=== PATIENT | female | born 2000 | race Caucasian/White ===

== ENCOUNTER 2021-05-26 15:17 | Emergency (ER) | payer OTHER, SELFPAY ==
[2021-05-26 15:38] VITALS: BP 124/82; PULSE 75; RESP 14; TEMP 36.4; O2SAT 99; BMI 32.4
--- NOTE | 2021-05-26 21:32 | PC.NURSE ---
denies numbness or tingling in UE and LE, no loss of bowel or bladder control, hx of same but not this bad tylenol [employer] at 1430
--- NOTE | 2021-05-26 23:31 | ED_ITS ---
HPI - Back Pain/Injury General Chief Complaint: Back Pain/Injury Stated Complaint: Sharp Pain in Lower Back Time Seen by Provider: 05/26/21 23:30 Source: patient Mode of arrival: Ambulatory Limitations: no limitations History of Present Illness HPI Narrative: This is a 20-year-old female comes emergency department with complaint of low back pain. Patient has had a couple twinges urinary but today bent over and had sudden severe pain in her mid lumbar spine. That radiates bilaterally. Any sort of movement makes worse particularly bending. Patient denies any numbness, tingling or weakness, no bowel or bladder incontinence. She has increased with movement of her legs but no radiation of pain down her legs. Patient denies any other major medical issues. No daily medications. No prior surgeries. No drug allergies. She had Tylenol about 230 today she has not had anything since. She is active duty . Denies tobacco, occasional alcohol, no illicit. She is accompanied by her boyfriend. Related Data Previous Rx's Medication Instructions Recorded diazepam 5 mg tablet (Valium) 5 mg PO TID PRN #14 tab 05/26/21 Allergies Allergy/AdvReac Type Severity Reaction Status Date / Time No Known Drug Allergies Allergy Verified 05/26/21 15:37 Review of Systems Review of Systems ROS Unobtainable: All systems reviewed & are unremarkable except as noted in HPI and below Patient History Social History Smoking Status: Never smoker Smoking Status: Never smoker alcohol intake frequency: holidays/special occasions only Substance Use Type: does not use Exam Narrative Exam Narrative: GENERAL: Alert and oriented x three, female in [id number] distress. HEENT: Head normocephalic, atraumatic, EOMI, pupils reactive, face symmetric, moist mucous membranes NECK: Supple, full range of motion CARDIOVASCULAR: Regular rate and rhythm without murmurs, rubs or gallops. RESPIRATORY: Breath sounds equal bilaterally, no wheezes rales or rhonchi. ABDOMEN: Soft, nontender. Normoactive bowel sounds all 4 quadrants. No guarding or rebound, rigidity, no mass : No CVA tenderness BACK: No cervical, thoracic vertebral point tenderness. Patient does have some midline tenderness of the lower lumbar spine. No point tenderness. Has decreased but is able to move through her range of motion. Rectal exam is de ferred. Muscle strength is 5/5 in lower extremities, DTRs are 2/4 and lower extremities. Dorsalis pedis and tibialis pulses are 2+ and lower extremities. Sensation is intact in the lower extremities. Patient is able to sit up and rotate to the side of the bed without assistance. EXTREMITIES: Normal range of motion, no clubbing or edema. Neurovascularly intact NEUROLOGICAL: Cranial nerves II through XII grossly intact. Moving all extremities SKIN: Warm, dry, no petechiae, no rashes or lesions. Initial Vital Signs Initial Vital Signs: Vital Signs Temperature 97.6 F 05/26/21 15:38 Pulse Rate 75 05/26/21 15:38 Respiratory Rate 14 05/26/21 15:38 Blood Pressure 124/82 05/26/21 15:38 Pulse Oximetry 99 05/26/21 15:38 Course Orders Ordered: Discontinued Medications Diazepam (Diazepam 5 Mg Tablet) 5 mg PO NOW ONE Stop: 05/26/21 23:42 Last Admin: 05/26/21 23:50 Dose: 5 mg Documented by: SHUKRI Ketorolac Tromethamine (Ketorolac 30 Mg/Ml Vial) 30 mg IV NOW ONE Stop: 05/26/21 23:42 Last Admin: 05/26/21 23:50 Dose: 30 mg Documented by: SHUKRI Vital Signs Vital signs: Vital Signs - 8 hr 05/26/21 15:38 Temperature 97.6 F Pulse Rate 75 Respiratory Rate 14 Blood Pressure 124/82 Pulse Oximetry 99 MDM - Back Pain/Injury MDM Narrative Medical decision making narrative: This is a 20-year-old female with acute low back pain that occurred while bending over. Patient has not had persistent issues but has had some mild twinges of discomfort recently. She does not have any red flag symptoms at this time. Plan for pain medication, muscle relaxer and follow up with primary care. We did discuss red flag symptoms and she expressed understanding for reasons to return to the ED. Discharge Plan Departure Patient Disposition: Home Clinical Impression: Lumbar strain Instructions: DI for Back Strain or Sprain Activity Restrictions/Additional Instructions: Follow-up with your physician in the next week if you are not having improvement or resolution of your symptoms. You may take Tylenol up to a 1000 mg every 8 hours and/or ibuprofen up to 800 mg every 8 hours. You may also take Valium 1 tablet every 8 hours as needed. Prescription sent to [facility] in [place]. Please return for rapidly worsening symptoms, loss of bowel or bladder control, new numbness, tingling or weakness of her extremities in the mid lift or move her extremity, passing out or other new or concerning symptoms. Prescriptions: New diazepam [Valium] 5 mg tablet 5 mg PO TID PRN (Reason: muscle spasm) Qty: 14 0RF Referrals: Miscellaneous,Doctor, MD [Primary Care Provider] - Stand Alone Forms: Work Release Note
[2021-05-26] MEDS: KETOROLAC 30 MG/ML VIAL IV (23:50)
[2021-05-26] MEDS: diazePAM 5 MG TABLET PO (23:50)
[2021-05-26 23:57] VITALS: BP 155/72; PULSE 66; RESP 14; O2SAT 99
== END 2021-05-26 23:58 | disposition home or self-care (01) ==
PROVIDERS: Emergency Provider Emergency Medicine
DX: S39.012A Strain of muscle, fascia and tendon of lower back, initial encounter (principal); X58.XXXA Exposure to other specified factors, initial encounter
CPT/HCPCS: 96372; 99283; 99284; J1885